=== PATIENT | male | born 1985 | race Two or more races ===

== ENCOUNTER 2024-06-02 06:45 | Day surgery (SDC) | payer MEDICAID, SELFPAY ==
[2024-06-01 13:21] VITALS: BMI 29.2
[2024-06-02] VITALS (10 sets, daily range): BP systolic 118–127; BP diastolic 77–91; PULSE 61–85; RESP 12–21; TEMP 36.8–36.9; O2SAT 95–99; BMI 29.8
[2024-06-02] MEDS: SODIUM CHLORIDE 0.9% 500 ML 500 ML 100 ML IV (07:24)
[2024-06-02] MEDS: DiphenhydrAMINE INJ 50 MG/ML VIAL 25 MG IV (07:32)
[2024-06-02] MEDS: MIDAZOLAM INJ 1 MG/ML VIAL 2 ML (ASD USE ONLY) 2 MG IV (07:34)
[2024-06-02] MEDS: fentaNYL CIT INJ 50 mCg/ML AMP 2ML (ASD USE ONLY) IV (07:36)
[2024-06-02] MEDS: SIMETHICONE 40 MG/0.6 ML ORAL SYRINGE PO (07:39)
== END 2024-06-02 08:16 | disposition home or self-care (01) ==
PROVIDERS: PCP Registered Nurse Critical Care Medicine; Referring Provider Surgery; Visit Provider Surgery
PROC: 0DBE8ZX Excision of Large Intestine, Via Natural or Artificial Opening Endoscopic, Diagnostic (ICD-10-PCS; CPT 45380; principal; 2024-06-02 07:30)
DX: K57.30 Diverticulosis of large intestine without perforation or abscess without bleeding (principal); K57.32 Diverticulitis of large intestine without perforation or abscess without bleeding
CPT/HCPCS: 45378; J1200; J2250; J3010; J7040; A9270